=== PATIENT | male | born 1995 | race Caucasian/White ===

== ENCOUNTER 2019-02-12 17:56 | Emergency (ER) | payer OTHER ==
[~2019-02-12] VITALS: Ht 167.6 cm; Wt 77.1 kg
== END 2019-02-12 21:23 | disposition home or self-care (01) ==
LOC: ER 17:56
DX: M94.0 Chondrocostal junction syndrome [Tietze] (principal)

== ENCOUNTER 2019-05-04 13:43 | Emergency (ER) | payer OTHER ==
[~2019-05-04] VITALS: Ht 167.6 cm; Wt 80.7 kg
== END 2019-05-04 17:22 | disposition home or self-care (01) ==
LOC: ER 13:43
DX: M54.2 Cervicalgia (principal); R53.81 Other malaise